=== PATIENT | female | born 1965 | race Caucasian/White ===

== ENCOUNTER → 2024-04-04 08:07 | Outpatient (REF) | payer OTHER, SELFPAY | LOC: WDC 08:07 | PROVIDERS: ATTENDING PHYSICIAN Obstetrics & Gynecology Gynecology; FAMILY PHYSICIAN Nurse Practitioner | DX: Z12.31 Encounter for screening mammogram for malignant neoplasm of breast (principal) | CPT/HCPCS: 77063; 77067 ==

== ENCOUNTER → 2024-07-18 07:44 | Outpatient (REF) | payer OTHER, SELFPAY | LOC: RAD 07:44 | PROVIDERS: ATTENDING PHYSICIAN Internal Medicine; FAMILY PHYSICIAN Nurse Practitioner | DX: M81.0 Age-related osteoporosis without current pathological fracture (principal) | CPT/HCPCS: 77080 ==

== ENCOUNTER → 2025-04-09 07:50 | Outpatient (REF) | payer OTHER, SELFPAY | LOC: WDC 07:50 | PROVIDERS: ATTENDING PHYSICIAN Obstetrics & Gynecology Gynecology; FAMILY PHYSICIAN Nurse Practitioner | DX: Z12.31 Encounter for screening mammogram for malignant neoplasm of breast (principal) | CPT/HCPCS: 77063; 77067 ==